=== PATIENT | female | born 2000 | race Hispanic/Latino ===

== ENCOUNTER 2021-02-03 18:32 | Emergency (ER) | payer OTHER ==
[2021-02-03] MEDS ORDERED: Acetaminophen 500 MG TAB ONE (19:16)
[2021-02-03 19:31] LABS: #Monocytes 0.5 10x3/uL (0.0-1.1); #Neutrophils 9.5 10x3/uL (1.5-8.4); %Basophils 0.1 % (0.0-2.0); %Eosinophils 0.3 % (0.0-6.0); %Lymphocytes 7.3 % (18.0-47.0); %Monocytes 4.3 % (0.0-10.0); %Neutrophils 87.7 % (40.0-75.0); Hemoglobin 12.4 g/dL (12.0-15.5); Mean Corpuscular HGB CONC 33.2 g/dL (32.0-36.0); Mean Corpuscular Hemoglobin 29.7 pg (27.0-33.0); Mean Corpuscular Volume 89.4 fl (81.6-98.3); Mean Platelet Volume 10.2 fl (7.4-10.4); Platelet Count 229 10x3/uL (150-450); RBC Distribution Width 12.2 % (11.5-14.5); Red Blood Cell (RBC) Count 4.17 10x6/uL (3.90-5.03); White Blood Cell (WBC) Count 10.8 10x3/uL (3.5-10.5)
[2021-02-03 19:40] LABS: BHCG - Serum Negative (NEGATIVE); Pregs Control Background? CLEAR/WHITE (CLR/WHITE); Pregs Control Bar Appear? YES (CONTROL BAR)
[2021-02-03 19:45] LABS: ALT (SGPT) 13 U/L (8-55); AST (SGOT) 13 U/L (5-34); Albumin 4.7 g/dL (3.5-5.0); Alkaline Phosphatase 86 U/L (40-110); Anion Gap 15 mmol/L (10-20); BUN (Urea Nitrogen) 9 mg/dL (7.0-18.7); Bilirubin, Total 0.4 mg/dL (0.2-1.2); Calc. Creatinine Clearance 0 mL/min (70-130); Calcium 9.5 mg/dL (7.8-10.44); Carbon Dioxide 25 mmol/L (22-29); Chloride 102 mmol/L (98-107); Globulin 3.5 g/dL (2.4-3.5); Glucose 116 mg/dL (70-105); Potassium 3.6 mmol/L (3.5-5.1); Protein, Total 8.2 g/dL (6.0-8.3); Sodium 138 mmol/L (136-145)
== END 2021-02-03 20:17 | disposition home or self-care (01) ==
LOC: CSHERS 18:32
DX: R51.9 Headache, unspecified (principal); R53.83 Other fatigue
CPT/HCPCS: 36415; 80053; 84703; 85025; 93005

== ENCOUNTER 2022-09-25 03:59 | Emergency (ER) | payer OTHER ==
[2022-09-25] MEDS ORDERED: Bupivacaine PF 0.5% 30 ML VIAL ONE (04:21)
[2022-09-25] MEDS ORDERED: Ibuprofen 200 MG TAB ONE (04:58)
== END 2022-09-25 05:05 | disposition home or self-care (01) ==
LOC: CSHERS 03:59
DX: K02.9 Dental caries, unspecified (principal)
CPT/HCPCS: 64400; S0020

== ENCOUNTER 2023-04-07 20:55 | Emergency (ER) | payer OTHER ==
[2023-04-07] MEDS ORDERED: Ketorolac Tromethamine 30 MG/ML VIAL ONE (21:13)
[2023-04-07] MEDS ORDERED: Ondansetron PF 4 MG/2 ML Vial ONE (21:13)
[2023-04-07 21:21] LABS: Bilirubin Neg (Negative); Blood, Urine 10 (Negative); Clarity Clear (Clear); Glucose, Urine (Dipstick) Normal (Negative); Ketone, Urine Negative (Negative); Leukocyte Negative (Negative); Nitrite Negative (Negative); Protein, Urine (Dipstick) Negative (Neg-Trace); Urobilinogen Normal mg/dL (Less than 2); pH, Urine 6.5 (5.0-9.0)
[2023-04-07 21:22] LABS: Pregnancy Test - Urine (BHCG) Negative (Negative); Pregu Control Background? CLEAR/WHITE (CLR/WHITE); Pregu Control Bar Appear? YES (CONTROL BAR)
[2023-04-07 21:31] LABS: #Eosinphils 0.1 10x3/uL (0.0-0.5); #Monocytes 0.6 10x3/uL (0.0-1.1); #Neutrophils 5.6 10x3/uL (1.5-8.4); %Basophils 0.3 % (0.0-2.0); %Eosinophils 1.1 % (0.0-6.0); %Lymphocytes 32.2 % (18.0-47.0); %Monocytes 6.1 % (0.0-10.0); Hemoglobin 13.1 g/dL (12.0-15.5); Mean Corpuscular Hemoglobin 29.2 pg (27.0-33.0); Mean Corpuscular Volume 88.6 fl (81.6-98.3); Mean Platelet Volume 10.3 fl (7.4-10.4); Platelet Count 342 10x3/uL (150-450); RBC Distribution Width 12.8 % (11.5-14.5); Red Blood Cell (RBC) Count 4.48 10x6/uL (3.90-5.03); White Blood Cell (WBC) Count 9.3 10x3/uL (3.5-10.5)
[2023-04-07 21:33] LABS: Bacteria/HPF None Seen HPF (None Seen); CAUTI Indications for Culture Pelvic or flank pain; RBC/HPF 0-3 HPF (0-3); Squamous Epithelial 0-3 HPF (0-3); WBC/HPF None Seen HPF (0-3)
[2023-04-07 21:36] LABS: Urine Culture Reflex No No
[2023-04-07 21:36] LABS: ALT (SGPT) 28 U/L (8-55); AST (SGOT) 20 U/L (5-34); Albumin 4.7 g/dL (3.5-5.0); Alkaline Phosphatase 81 U/L (40-110); Anion Gap 14 mmol/L (10-20); BUN (Urea Nitrogen) 7 mg/dL (7.0-18.7); Bilirubin, Total 0.2 mg/dL (0.2-1.2); Calc. Creatinine Clearance 0 mL/min (70-130); Calcium 9.8 mg/dL (7.8-10.44); Carbon Dioxide 24 mmol/L (22-29); Chloride 104 mmol/L (98-107); Estimated GFR 110; Globulin 3.9 g/dL (2.4-3.5); Glucose 89 mg/dL (70-105); Lipase 43 U/L (8-78); Magnesium 2.2 mg/dL (1.6-2.6); Protein, Total 8.6 g/dL (6.0-8.3); Sodium 138 mmol/L (136-145)
== END 2023-04-07 23:18 | disposition home or self-care (01) ==
LOC: CSHERS 20:55
DX: R10.11 Right upper quadrant pain (principal)
CPT/HCPCS: 76705; 80053; 81001; 81025; 83690; 83735; 85025; 96374; 96375; J1885; J2405

== ENCOUNTER 2023-09-07 23:07 | Emergency (ER) | payer OTHER, SELFPAY ==
[2023-09-07] MEDS ORDERED: Ketorolac Tromethamine 30 MG/ML VIAL ONE (23:32)
== END 2023-09-07 23:35 | disposition home or self-care (01) ==
LOC: CSHERS 23:07
DX: K03.81 Cracked tooth (principal); K02.9 Dental caries, unspecified
CPT/HCPCS: 99282; J1885